=== PATIENT | female | born 1990 | race Caucasian/White ===

== ENCOUNTER 2017-11-28 10:35 | Emergency (ER) | payer BC, OTHER ==
[2017-11-28 11:28] VITALS: BP 120/75
--- NOTE | 2017-11-28 11:46 | UC ---
UC General HPI - HPI Summary HPI Summary: 26 yo female present for eval / tx of progressively worse rash, pruritis since Friday later in the day (today is Friday). Started as itchy all over, yesterday developed "rash" on right abdomen, by today has progressed all over her body. Itchy all over, nando scalp, torso, groin. Soles of feet hurt. No cough, no cold sx. No cp, no palpitations. No recent illness. Denies urinary sx. No GI issues. No recent change in soap / medications / food. Has not recently taken abx. Has pets at home, not new to the household. Possible exposure to another individual with similar sx on Friday. Denies fever /chills - was unaware she had a fever until temperature take here at [facility]. Last mens cycle early 2017. IVF mid Oct 2017. - History of Current Complaint Chief Complaint: UCRash Stated Complaint: SKIN COMPLAINT Time Seen by Provider: 11/28/17 11:24 Hx Obtained From: Patient Hx Last Menstrual Period: 09/2017 Onset Severity: Mild Current Severity: Severe Pain Intensity: 0 - Allergy/Home Medications Allergies/Adverse Reactions: Allergies Allergy/AdvReac Type Severity Reaction Status Date / Time sulfamethoxazole Allergy "I got Verified 11/28/17 11:15 [From Bactrim] really hyper" trimethoprim [From Bactrim] Allergy See Comment Verified 11/28/17 11:14 Home Medications: Home Medications [place]inone 1 liq VAGINAL DAILY 11/28/17 [History Confirmed 11/28/17] Vit Calc,Iron,Folic [ Vitamins] 1 each PO DAILY 11/28/17 [ History Confirmed 11/28/17] diphenhydrAMINE HCl [Benadryl Allergy] 50 mg PO ONCE PRN 11/28/17 [History Confirmed 11/28/17] PMH/Surg Hx/FS Hx/Imm Hx Previously Healthy: Yes - Surgical History Surgical History: Yes Surgery Procedure, Year, and Place: Right Knee Arthoscopy - Family History Known Family History: Positive: Unknown - Social History Occupation: Employed Full-time Alcohol Use: None Substance Use Type: None Smoking Status (MU): Never Smoked Tobacco - Immunization History Most Recent Influenza Vaccination: April 2015 Review of Systems Constitutional: Negative Skin: Other - see hpi Eyes: Negative ENT: Other - see hpi Respiratory: Negative Cardiovascular: Negative Gastrointestinal: Negative Genitourinary: Negative Motor: Negative Neurovascular: Negative Musculoskeletal: Negative Neurological: Negative Psychological: Negative Is Patient Immunocompromised?: No All Other Systems Reviewed And Are Negative: Yes Physical Exam Triage Information Reviewed: Yes Appearance: Well-Nourished - sitting up, conversing easily and appropriately. NAD. Vital Signs: Initial Vital Signs Temp 101.4 F 11/28/17 11:20 Pulse 127 11/28/17 11:20 Resp 16 11/28/17 11:20 BP 120/75 11/28/17 11:20 Pulse Ox 98 11/28/17 11:20 Vital Signs Reviewed: Yes Eye Exam: Normal - grossly normal. perrla / eomi ENT: Positive: Pharynx normal, Other - ears both red, rash extends into scalp. TM's bilat dull, dee. Neck exam: Normal Neck: Positive: Supple, Nontender, No Lymphadenopathy - no adenopathy appreciated. Also no obvious adenopathy appreciated axillae regions. Respiratory Exam: Normal Respiratory: Positive: Chest non-tender, Lungs clear, Normal breath sounds, No respiratory distress, No accessory muscle use Cardiovascular Exam: Other - HR 120's. Correlates with Rad pulse. Nondiaphoretic. Cardiovascular: Positive: Pulses Normal, Brisk Capillary Refill Abdominal Exam: Normal Abdomen Description: Positive: Nontender Bowel Sounds: Positive: Present Musculoskeletal Exam: Normal - gait steady, moves x 4 ext's Neurological Exam: Normal - grossly nonfocal Psychological Exam: Normal - conversing easily and appropriately Skin Exam: Other - nondiaphoretic. Scattered redness and urticarial type areas over entire body. There are several circumferential areas of raised redness, suspicious erytherma multiforme. No vesicular lesions noted. Soles of feet tender, with raised lesions. Course/Dx - Course Course Of Treatment: Temperature decreased to 99 at time of discharge (at time of acetaminophen, indeed the temp may have decreased spontaneously rather than d /t antipyretic). Received benadryl 50mg po x 1 here and acetaminophen 650mg po x 1 here, both prior to discharge. Constellation of s/sx in 7 week woman with concomitant rash, fever, elevated heart rate are concerning for multiple etiologies. (Including albeit not limited to sepsis.) Strongly recommend evaluation and treatment in Emergency Department. Ms. Beltran and her were offered and encouraged IV and EMS transport to ED. They politely but firmly decline, he will drive. Pruritic rash is concerning not just for hives / uritcaria, but also suspicion for other rashes including albeit not limited to e. multiforme. They prefer to go to [place] [facility] (local). Questions as posed answered to the best of my ability. I d/w Dr. Pedroza, [facility]. - Differential Dx - Multi-Symptom Provider Diagnoses: Fever. Rash. 7 weeks Discharge - Discharge Plan Condition: Guarded Disposition: OTHER Discharge Disposition Comment: to [facility], driving Patient Education Materials: Fever in Adults (ED) Referrals: Pao [facility] [Primary Care Provider] - Additional Instructions: Please go directly to the Emergency Department. Please do not stop on the way to eat or go home. Please call 911 for any problems en route. You received benadryl 50mg po x 1 here. You received acetaminophen 650mg po x 1 here.
[2017-11-28] MEDS ORDERED: diPHENhydraMINE PO* 25 MG PO ONE (11:55)
[2017-11-28] MEDS ORDERED: Acetaminophen TAB* 325 MG PO ONE (11:56)
== END 2017-11-28 12:07 ==
LOC: UCCORT 10:35
DX: O26.891 Other specified pregnancy related conditions, first trimester (principal); Z3A.01 Less than 8 weeks gestation of pregnancy; R50.9 Fever, unspecified; R21 Rash and other nonspecific skin eruption; Z88.1 Allergy status to other antibiotic agents
CPT/HCPCS: 99212; A9270-GY; G0463